=== PATIENT | female | born 1975 | race Caucasian/White ===

== ENCOUNTER 2023-07-04 16:08 | Outpatient (REF) | payer BC, SELFPAY ==
--- NOTE | 2023-07-04 14:55 | SKI_PTH ---
PATIENT: Nazanin Zafar LOC: [facility] U#:[id number] AGE/SX: 47/F ROOM: RE07/04/[address]: Michael Niño MD : 1975 BED: DIS: 07/04/2023 SPEC #: [id number] RECD: 07/04/23 18:42 STATUS: MELISSA RELorie #: [id number] IDALMIS: 07/04/23 14:[address]: Michael Niño DEPT: Surgical Specimen RECD BY: Billie Fowler ENTERED: 07/04/23 18:43 SP TYPE: KALPESH BUSTILLO DR: Louis De Jesus MD Tissues: 1 - SKIN BIOPSY(SHAVE/PUNCH) Procedures: SKIN LEVEL 4 Comments: [id number]
== END 2023-07-04 16:09 | disposition home or self-care (01) ==
LOC: LBN 16:08
PROVIDERS: PCP Family Medicine; Visit Provider Otolaryngology
DX: D18.01 Hemangioma of skin and subcutaneous tissue (principal); L98.9 Disorder of the skin and subcutaneous tissue, unspecified
CPT/HCPCS: 88305